=== PATIENT | male | born 2005 | race Caucasian/White ===

== ENCOUNTER 2023-04-27 14:31 | Emergency (ER) | payer OTHER ==
[2023-04-27 14:49] VITALS: O2SAT 100
[2023-04-27 15:08] LABS: BASOPHILS # (AUTO) 0.1 10^3/uL (0.0-0.1); BASOPHILS % (AUTO) 1.2 %; EOSINOPHILS # (AUTO) 0.1 10^3/uL (0.0-0.7); EOSINOPHILS % (AUTO) 1.9 %; HCT - HEMATOCRIT 45.1 % (42.0-52.0); HGB - HEMOGLOBIN 15.4 g/dL (14.0-18.0); LYMPHOCYTES # (AUTO) 1.9 10^3/uL (1.5-3.5); LYMPHOCYTES % (AUTO) 25.4 %; MEAN CORPUSCULAR HEMOGLOBIN 29.8 pg (27.0-31.0); MEAN CORPUSCULAR HGB CONC 34.1 g/dL (32.0-36.0); MEAN CORPUSCULAR VOLUME 87.2 fL (80.0-94.0); MEAN PLATELET VOLUME 9.6 fL (7.4-11.4); MONOCYTES # (AUTO) 0.5 10^3/uL (0.0-1.0); MONOCYTES % (AUTO) 6.7 %; NEUTROPHILS # (AUTO) 4.8 10^3/uL (1.5-6.6); NEUTROPHILS % (AUTO) 64.7 %; PLT - PLATELET COUNT 301 10^3/uL (130-450); RED BLOOD COUNT 5.17 10^6/uL (4.70-6.10); RED CELL DISTRIBUTION WIDTH 12.4 % (12.0-15.0); WHITE BLOOD COUNT 7.4 x10^3/uL (4.8-10.8)
--- NOTE | 2023-04-27 15:13 | ED Physician Documentation ---
History of Present Illness - Stated complaint Stated Complaint: CP/PASSING OUT - Chief complaint Chief Complaint: Cardiac - History obtained from History obtained from: Patient, Family - History of Present Illness Timing: Today Pain level max: 5 Pain level now: 0 - Additonal information Additional information: Patient is a 18-year-old male who presents to the emergency department complaining of sharp chest pain. He states that it last for a few seconds at a time. Started yesterday. Mostly in the center of his chest. No dyspnea. He states that today the episode lasted for a few extra seconds and he was lightheaded and dizzy. He denies any syncope. Not having any pain currently. He states he does drink coffee but no energy drinks. No drug use. No cardiac history. No family history of young cardiac events. No history of arrhythmias. Patient takes Flonase at home. No other medications. Denies any alcohol use. Review of Systems Constitutional: denies: Fever, Chills Nose: denies: Rhinorrhea / runny nose, Congestion Respiratory: denies: Cough GI: denies: Nausea, Vomiting, Diarrhea Skin: denies: Rash Musculoskeletal: denies: Neck pain, Back pain Neurologic: denies: Headache PD PAST MEDICAL HISTORY - Past Medical History Past Medical History: No - Past Surgical History Past Surgical History: No - Present Medications Home Medications: Ambulatory Orders Medication Instructions Recorded Confirmed Fluticasone [Flonase] 1 sprays T[place] DAILY 04/27/23 04/27/23 - Allergies Allergies/Adverse Reactions: Allergies Allergy/AdvReac Type Severity Reaction Status Date / Time No Known Drug Allergies Allergy Verified 04/27/23 14:44 - Social History Does the pt smoke?: No Smoking Status: Never smoker Does the pt drink ETOH?: No Does the pt have substance abuse?: No - Immunizations Immunizations are current?: No Immunizations: TDAP >10years/unknown PD ED PE NORMAL - Vitals Vital signs reviewed: Yes - General General: Alert and oriented X 3, No acute distress - HEENT HEENT: PERRL, Moist mucous membranes - Neck Neck: Supple, no meningeal sign, No JVD, No bruit - Cardiac Cardiac: RRR, Strong equal pulses - Respiratory Respiratory: No respiratory distress, Clear bilaterally - Abdomen Abdomen: Soft, Non tender, Non distended - Back Back: No spinal TTP - Derm Derm: Warm and dry - Extremities Extremities: No edema, No calf tenderness / cord - Neuro Neuro: Alert and oriented X 3, security strategist 2-12 intact, No motor deficit, No sensory deficit, Normal speech Results - Vitals Vitals: Vital Signs - 24 hr 04/27/23 04/27/23 14:41 16:34 Temperature 36.8 C 36.4 C L Heart Rate 91 72 Respiratory 16 20 Rate Blood Pressure 112/70 115/79 O2 Saturation 100 100 Oxygen O2 Source Room air - EKG (time done) 1510 EKG releavant findings:: EKG personally interpreted by author of this note. Relevant findings are: Rate: Rate (enter#) (81) Rhythm: NSR Ong: Normal Intervals: Normal [place] QRS: Normal Ischemia: Normal ST segments - Labs Labs: Laboratory Tests 04/27/23 04/27/23 04/27/23 15:01 15:01 15:20 WBC 7.4 RBC 5.17 Hgb 15.4 Hct 45.1 MCV 87.2 MCH 29.8 MCHC 34.1 RDW 12.4 Plt Count 301 MPV 9.6 Neut # (Auto) 4.8 Lymph # (Auto) 1.9 Bland # (Auto) 0.5 Eos # (Auto) 0.1 Baso # (Auto) 0.1 Absolute Nucleated RBC 0.00 Nucleated RBC % 0.0 D-Dimer < 200.0 L Sodium 137 Potassium 4.0 Chloride 102 Carbon Dioxide 28 Anion Gap 7.0 BUN 18 Creatinine 1.0 Estimated GFR (MDRD) 95 Glucose 103 Calcium 10.4 H Phosphorus 3.8 Magnesium 1.9 Total Bilirubin 1.0 AST 18 ALT 17 Alkaline Phosphatase 76 Troponin I High Sens 2.3 Total Protein 8.1 Albumin 4.9 Globulin 3.2 Albumin/Globulin Ratio 1.5 Lipase 38 - Rads (name of study) cxr Relevant Findings:: Final report received, See rad report PD Medical Decision Making - ED course Complexity details: reviewed results, re-evaluated patient, considered differential (No ST elevation AR, no aortic dissection, no PE, no tension pneumothorax, no aortic aneurysm), d/w patient, d/w family ED course: Patient with atypical chest pain. He did have an episode of the chest pain here which lasted 2 to 3 seconds. No arrhythmias on telemetry monitoring. No sig nificant lab abnormalities. Negative D-dimer. No evidence of aortic dissection, PE. Possible GI source? Possible soft tissue source? Does not appear to be an emergency medical condition at this time. Will have him follow- up with his doctor for further care. Patient counseled regarding signs and symptoms for which I believe and urgent re-evaluation would be necessary. Patient with good understanding of and agreement to plan and is comfortable going home at this time This document was made in part using voice recognition software. While efforts are made to proofread this document, sound alike and grammatical errors may occur. Departure - Departure Disposition: Home, Self Care Clinical Impression: Chest pain Qualifiers: Chest pain type: unspecified Qualified Code(s): R07.9 - Chest pain, unspecified Condition: Good Instructions: ED Chest Pain Atypical Unkn Cause Follow-Up: your,doctor in 1 week [Other] Comments: You can try to turn or Tylenol as needed for pain at home. Please follow-up with your doctor for further care. Your EKG, laboratory testing and chest x-ray do not show any acute abnormality today. There is no evidence of heart attack, blood clots in the lungs or arrhythmia. When you had your symptoms in the emergency department your heart rhythm remained normal. Please make sure you are drinking plenty of water at home. Please return if you worsen. Forms: PCP List Discharge Date/Time: 04/27/23 16:34
[2023-04-27 15:30] LABS: TROPONIN I HIGH SENSITIVITY 2.3 ng/L (2.3-19.7)
[2023-04-27 15:44] LABS: ALBUMIN 4.9 g/dL (3.2-5.5); ALBUMIN/GLOBULIN RATIO 1.5 (1.0-2.2); CALCIUM 10.4 mg/dL (8.5-10.3); MAGNESIUM 1.9 mg/dL (1.7-2.3); PHOSPHORUS 3.8 mg/dL (2.5-5.0); TOTAL PROTEIN 8.1 g/dL (6.4-8.9)
--- NOTE | 2023-04-27 15:55 | XRAY Report ---
PROCEDURE: Chest 1 View X-Ray INDICATIONS: Chest Pain TECHNIQUE: One view of the chest was acquired. COMPARISON: None. FINDINGS: Surgical changes and devices: None. Lungs and pleura: No pleural effusions or pneumothorax. Lungs are clear. Mediastinum: Mediastinal contours appear normal. Heart size is normal. Bones and chest wall: No suspicious bony lesions. Overlying soft tissues appear unremarkable. IMPRESSION: No acute cardiopulmonary process. Reviewed by: Armond Salguero MD on 04/27/2023 3:[address] [facility] Approved by: Armond Salguero MD on 04/27/2023 3:[address] [facility] Station ID: [id number]
[2023-04-27 16:43] VITALS: BP 115/79
== END 2023-04-27 16:34 | disposition home or self-care (01) ==
LOC: ED 14:31
DX: R07.9 Chest pain, unspecified (principal)
CPT/HCPCS: 36415; 80053; 83690; 83735; 84100; 84484; 85025; 85379; 93005; 99283; 99284